=== PATIENT | female | born 1970 | race Two or more races ===

== ENCOUNTER 2025-02-17 19:17 | Inpatient (IN) | payer MEDICAID, OTHER ==
[~2025-02-17] VITALS: Ht 162.6 cm; Wt 81.9 kg
--- NOTE | 2025-02-17 19:38 | ED.PDOC ---
HPI Comments 54-year-old female complains of sudden onset palpitations and sensation of a rapid heart rate tonight that it started about 2 hours ago. Patient was brought in by EMS. EMS noted that the patient was in SVT and they gave 12 of adenosine and the patient converted to a normal sinus rhythm. Patient now states that she feels better. Chief Complaint: Palpitations Time Seen by MD: 19:28 Reviewed Notes: Nurses Notes, Solutions Consultant Notes Allergies: Coded Allergies: NO KNOWN ALLERGIES (Unverified , 02/17/25) Information Source: Patient, Emergency Med Personnel Mode of Arrival: EMS Severity: Severe Timing: Hours Duration: Hours Associated Signs and Symptoms: Palpitations Past Medical History PAST MEDICAL HISTORY: Denies Social History Smoker: Non-Smoker Alcohol: Denies ETOH Use Drugs: Denies Drug Use Cardiovascular: reports: palpitations, others (Chest tightness) All Other Systems: Reviewed and Negative Physical Exam General Appearance: No Apparent Distress, Normal HEENT: Normal ENT Inspection, Pharynx Normal, TMs Normal Neck: Full Range of Motion, Non-Tender, Normal, Normal Inspection Respiratory: Chest Non-Tender, Lungs Clear, No Accessory Muscle Use, No Respiratory Distress, Normal Breath Sounds Cardiovascular: No Edema, No JVD, No Murmur, No Gallop, Normal Peripheral Pulses, Regular Rate/Rhythm Breast Exam: Deferred Gastrointestinal: No Organomegaly, Non Tender, No Pulsatile Mass, Normal Bowel Sounds, Soft Genitalia: Deferred Pelvic: Deferred Rectal: Deferred Extremities: No calf tenderness, Normal capillary refill, Normal inspection, Normal range of motion, Non-tender, No pedal edema Musculoskeletal : Apperance: Normal Neurologic: Alert, 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 Was a procedure done?: No CP Differential Dx Differential Diagnosis: A-fib, A-Flutter, Angina, Heart Failure, Hyperthyroidism, MAT, ME, V-Fib, V-Tach, Other X-Ray, Labs, Meds, VS Vital Signs Date Time Temp Pulse Resp B/P (MAP) Pulse Ox O2 Delivery O2 Flow Rate FiO2 02/18/25 00:00 68 02/17/25 23:00 76 16 119/76 (90) 98 02/17/25 22:22 79 02/17/25 21:37 98.0 79 18 102/69 (80) 99 98.0 02/17/25 21:36 85 19 102/69 (80) 99 02/17/25 21:00 90 22 110/73 (85) 99 02/17/25 20:27 96 02/17/25 20:00 98 02/17/25 19:43 102 20 98 Room Air* 0 21 02/17/25 19:42 97.9 102 20 120/77 (91) 98 97.9 02/17/25 19:29 100.0 100 20 121/74 100 100.0 02/17/25 19:17 101 Lab Test 02/18/25 00:23 02/17/25 22:27 02/17/25 20:28 02/17/25 19:34 Range/Units Troponin I High Sensitivity 369 *H 272 *H 70 *H 32 </=34 ng/L White Blood Count 5.1 4.4-10.8 10^3/uL Red Blood Count 4.64 4.0-5.20 10^6/uL Hemoglobin 13.6 12.2-16.2 g/dL Hematocrit 39.2 36.0-46.0 % Mean Corpuscular Volume 84.5 80.0-100.0 fL Mean Corpuscular Hemoglobin 29.3 28.0-32.0 pg Mean Corpuscular Hemoglobin Concent 34.7 32.0-36.0 g/dL Red Cell Distribution Width 12.7 11.8-14.3 % Platelet Count 223 140-450 10^3/uL Mean Platelet Volume 6.7 L 6.9-10.8 fL Neutrophils (%) (Auto) 56.9 37.0-80.0 % Lymphocytes (%) (Auto) 34.4 10.0-50.0 % Monocytes (%) (Auto) 4.9 0.0-12.0 % Eosinophils (%) (Auto) 3.5 0.0-7.0 % Basophils (%) (Auto) 0.3 0.0-2.0 % Neutrophils # (Auto) 2.9 1.6-8.6 10 ^3/uL Lymphocytes # (Auto) 1.7 0.4-5.4 10 ^3/uL Monocytes # (Auto) 0.2 0-1.3 10 ^3/uL Eosinophils # (Auto) 0.2 0-0.8 10 ^3/uL Basophils # (Auto) 0 0-0.2 10 ^3/uL Nucleated Red Blood Cells 0.0 % Sodium Level 145 136-145 mmol/L Potassium Level 3.4 L 3.5-5.1 mmol/L Chloride Level 110 H 98-107 mmol/L Carbon Dioxide Level 23 20-31 mmol/L Anion Gap 12 5-15 Blood Urea Nitrogen 14 9-23 mg/dL Creatinine 0.95 0.550-1.02 mg/dL Glomerular Filtration Rate Calc 71 >90 mL/min BUN/Creatinine Ratio 14.7 10.0-20.0 Serum Glucose 129 H 74-106 mg/dL Calcium Level 9.6 8.7-10.4 mg/dL Total Bilirubin 0.4 0.2-1.0 mg/dL Aspartate Amino Transferase (AST) 42 H 13-40 U/L Alanine Aminotransferase (ALT) 56 H 7-40 U/L Alkaline Phosphatase 67 46-116 U/L Total Protein 7.5 5.7-8.2 g/dL Albumin 4.3 3.2-4.8 g/dL Current Medications Medications (Trade) Dose Ordered Sig/Darrell Route Start Time Stop Time Status Last Admin Sodium Chloride 1,000 ml @ 1,000 mls/hr Q1H ONCE IV 02/17/25 23:15 02/18/25 00:14 DC 02/17/25 23:26 Aspirin 81 mg ONCE ONCE PO 02/17/25 23:30 02/17/25 23:31 DC 02/17/25 23:56 Time of 1ST Reevaluation: 19:37 Reevaluation 1ST: Improved Patient Education/Counseling: Diagnosis, Treatment Family Education/Counseling: No Family Present SEPSIS Sepsis Screen Physician Orders Electrocardigram (02/17/25 22:28) Lease Examiner (02/17/25 ) Vital Signs Date Time Temp Pulse Resp B/P (MAP) Pulse Ox O2 Delivery O2 Flow Rate FiO2 02/18/25 00:00 68 02/17/25 23:00 76 16 119/76 (90) 98 02/17/25 22:22 79 02/17/25 21:37 98.0 79 18 102/69 (80) 99 98.0 02/17/25 21:36 85 19 102/69 (80) 99 02/17/25 21:00 90 22 110/73 (85) 99 02/17/25 20:27 96 02/17/25 20:00 98 02/17/25 19:43 102 20 98 Room Air* 0 21 02/17/25 19:42 97.9 102 20 120/77 (91) 98 97.9 02/17/25 19:29 100.0 100 20 121/74 100 100.0 02/17/25 19:17 101 Laboratory Tests Test 02/17/25 19:34 White Blood Count 5.1 10^3/uL (4.4-10.8) Medications Medications Dose Ordered Sig/Darrell Route Start Time Stop Time Status Last Admin Dose Admin Aspirin 81 mg ONCE ONCE PO 02/17/25 23:30 02/17/25 23:31 DC 02/17/25 23:56 Sodium Chloride 1,000 ml @ 1,000 mls/hr Q1H ONCE IV 02/17/25 23:15 02/18/25 00:14 DC 02/17/25 23:26 Departure 1 Departure Time of Disposition: 02:18 Impression: Primary Impression: Supraventricular tachycardia Additional Impression: Acute coronary syndrome Disposition: 01 HOME / SELF CARE / HOMELESS Condition: Stable Discharged With: Self Comments Patient with the SVT episode that converted to sinus rhythm after 1 adenosine. However her troponin is steadily rising. Patient was given aspirin. Patient will need to be admitted for supportive care and further cardiac workup. Critical Care Note Critical Care Time?: Yes (35 min-critical care time only) Critical care comment: Total critical care time: Approximately 36 minutes Due to a high probability of clinically significant, life threatening dete rioration, the patient required my highest level of preparedness to intervene emergently and I personally spent this critical care time directly and personally managing the patient. This critical care time included obtaining a history; examining the patient; pulse oximetry; ordering and review of studies; arranging urgent treatment with development of a management plan; evaluation of patient's response to treatment; frequent reassessment; and, discussions with other providers. This critical care time was performed to assess and manage the high probability of imminent, life-threatening deterioration that could result in multi-organ f ailure. It was exclusive of separately billable procedures and treating other patients. Stability Stability form required: No Heart Score Heart Score: Heart Score Response (Comments) Value History Slightly Suspicious 0 EKG Normal 0 Age 45-64 1 Risk Factors 1 or 2 risk factors 1 Troponin 1-2 x's Normal limit 1 Total 3 LAURA SPENCER MD Feb 17, 2025 19:37
[2025-02-17 19:43] VITALS: PULSE 102; RESP 20; O2SAT 98
[2025-02-17 19:49] LABS: Hematocrit 39.2 % (36.0-46.0); Hemoglobin 13.6 g/dL (12.2-16.2); Mean Corpuscular Hemoglobin 29.3 pg (28.0-32.0); Mean Corpuscular Volume 84.5 fL (80.0-100.0); Nucleated Red Blood Cells % 0.0 %
[2025-02-17 20:08] LABS: Alkaline Phosphatase 67 U/L (46-116); Calcium 9.6 mg/dL (8.7-10.4); Carbon Dioxide 23 mmol/L (20-31)
[2025-02-17 20:09] LABS: Albumin 4.3 g/dL (3.2-4.8); Anion Gap 12 (5-15); BUN/Creatinine Ratio 14.7 (10.0-20.0); Bilirubin, Total 0.4 mg/dL (0.2-1.0); Blood Urea Nitrogen 14 mg/dL (9-23); Total Protein 7.5 g/dL (5.7-8.2)
[2025-02-17 20:42] LABS: Alanine Aminotransferase 56 U/L (7-40); Chloride 110 mmol/L (98-107); Glucose 129 mg/dL (74-106); Potassium 3.4 mmol/L (3.5-5.1); Sodium 145 mmol/L (136-145)
--- NOTE | 2025-02-17 23:12 | ECG ---
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
--- NOTE | 2025-02-17 23:13 | ECG ---
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
[2025-02-17] MEDS: SODIUM CHLORIDE 0.9% 1,000 ML IV ONE (23:26)
[2025-02-18] VITALS (8 sets, daily range): BP systolic 108–127; BP diastolic 63–80; PULSE 61–77; RESP 14–19; TEMP 97.1–98.1; O2SAT 96–97
[2025-02-18] MEDS: POTASSIUM CHL 20 Meq TABLET PO ONE (03:00)
[2025-02-18] MEDS ORDERED: ONDANSETRON HCL 4 MG/2 ML VIAL IV PRN (03:00)
--- NOTE | 2025-02-18 03:25 | DVHHPRES ---
History of Present Illness Resident Creating Document: DEANNA ALBA RESIDENT History of Present Illness 54-year-old female with no significant PMH has come to the emergency via EMS due to palpitations. Patient reports that she has been having sensation of her heart beating faster than normal on and off for the past month but today evening (02/17/2025), while she was working she had a similar episode, but this time it was continuous. She waited for an hour and when the palpitations did not go away she decided to call EMS. She reports that it was associated with shortness of breaths and slight dizziness but denies any nausea, vomiting, fever, chills, chest pain. In the EMS she had an episode of SVT and 12 of adenosine was administered, after which patient converted to normal sinus rhythm. Patient has no complaints now and reports feeling better. On admission vitals were stable HR 79, BP 115/67 mmHg, RR 14, SpO2 94% on room air. Potassium is slightly low at 3 .4 and tropes are up trending 70>272> 369. We are admitting the patient for further workup and management Past medical history: None Surgical history: x1, hysterectomy for urinary cancer Family history: None Social history: Patient lives with family, denies ever smoking, drinking alcohol or taking any illicit drugs PCP: Cannot remember the name (is in [place], [place]) Allergies: None Code status: Full code Review of Systems Constitutional: Yes: Other (Dizziness); No: Fever, Chills, Sweats, Weakness, Malaise Eyes: No: Pain, Vision change, Conjunctivae inflammation, Eyelid inflammation, Other, Redness ENT: No: Ear pain, Ear discharge, Nose pain, Nose discharge, Nose congestion, Mouth pain, Mouth swelling, Throat pain, Throat swelling, Other Respiratory: Shortness of breath; No: Cough, Dry, SOB with excertion, Wheezing, Hemoptysis, Pleuritic Pain, Sputum, Wheezing, Other Cardiovascular: Palpitations; No: Chest Pain, Orthopnea, Paroxysmal Noc. Dyspnea, Edema, Lt Headedness, Other Gastrointestinal: No: Nausea, Vomiting, Abdominal Pain, Diarrhea, Constipation, Melena, Hematochezia, Other Genitourinary: No Dysuria, No Frequency, No Incontinence, No Hematuria, No Retention, No Other Musculoskeletal: No: other, neck pain, shoulder pain, arm pain, back pain, hand pain, leg pain, foot pain Skin: No: Rash, Lesions, Jaundice, Bruising, Other Neurological: No: Weakness, Numbness, Incoordination, Change in speech, Confusion, Seizures, Other Allergies: Coded Allergies: NO KNOWN ALLERGIES (Unverified , 02/17/25) Medications Current Medications Medications Dose Ordered Sig/Darrell Route Start Time Stop Time Status Last Admin Dose Admin Ondansetron HCl 4 mg Q4HP PRN IV 02/18/25 03:00 Enoxaparin Sodium 40 mg Q24H SC 02/18/25 04:00 Aspirin 81 mg DAILY PO 02/18/25 10:00 Metoprolol Tartrate 12.5 mg BID PO 02/18/25 10:00 Exam Vital Signs Vital Signs Date Time Temp Pulse Resp B/P (MAP) Pulse Ox O2 Delivery O2 Flow Rate FiO2 02/18/25 02:00 68 14 115/67 (83) 94 02/17/25 21:37 98.0 98.0 02/17/25 19:43 Room Air* 0 21 Exam Pt is lying on bed General Appearance: Alert, Oriented X3, Cooperative, Not in acute distress HEENT: Atraumatic, Mucous membranes moist/pink Respiratory: Clear to auscultation, Normal air movement, No added sounds Cardiovascular: Regular rate, Normal S1, Normal S2, No murmurs Abdominal: Active bowel sounds, Soft, no distention, no tenderness Extremities: No edema, Normal pulses, No tenderness/swelling Skin: No Significant rash, except past surgical scars Neuro: Normal speech, sensorimotor deficits none Psych/Mental Status: Mental status NL, Mood NL 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 Labs/Xrays Labs Test 02/18/25 00:23 02/17/25 19:34 Range/Units Troponin I High Sensitivity 369 *H </=34 ng/L White Blood Count 5.1 4.4-10.8 10^3/uL Red Blood Count 4.64 4.0-5.20 10^6/uL Hemoglobin 13.6 12.2-16.2 g/dL Hematocrit 39.2 36.0-46.0 % Mean Corpuscular Volume 84.5 80.0-100.0 fL Mean Corpuscular Hemoglobin 29.3 28.0-32.0 pg Mean Corpuscular Hemoglobin Concent 34.7 32.0-36.0 g/dL Red Cell Distribution Width 12.7 11.8-14.3 % Platelet Count 223 140-450 10^3/uL Mean Platelet Volume 6.7 L 6.9-10.8 fL Neutrophils (%) (Auto) 56.9 37.0-80.0 % Lymphocytes (%) (Auto) 34.4 10.0-50.0 % Monocytes (%) (Auto) 4.9 0.0-12.0 % Eosinophils (%) (Auto) 3.5 0.0-7.0 % Basophils (%) (Auto) 0.3 0.0-2.0 % Neutrophils # (Auto) 2.9 1.6-8.6 10 ^3/uL Lymphocytes # (Auto) 1.7 0.4-5.4 10 ^3/uL Monocytes # (Auto) 0.2 0-1.3 10 ^3/uL Eosinophils # (Auto) 0.2 0-0.8 10 ^3/uL Basophils # (Auto) 0 0-0.2 10 ^3/uL Nucleated Red Blood Cells 0.0 % Sodium Level 145 136-145 mmol/L Potassium Level 3.4 L 3.5-5.1 mmol/L Chloride Level 110 H 98-107 mmol/L Carbon Dioxide Level 23 20-31 mmol/L Anion Gap 12 5-15 Blood Urea Nitrogen 14 9-23 mg/dL Creatinine 0.95 0.550-1.02 mg/dL Glomerular Filtration Rate Calc 71 >90 mL/min BUN/Creatinine Ratio 14.7 10.0-20.0 Serum Glucose 129 H 74-106 mg/dL Calcium Level 9.6 8.7-10.4 mg/dL Total Bilirubin 0.4 0.2-1.0 mg/dL Aspartate Amino Transferase (AST) 42 H 13-40 U/L Alanine Aminotransferase (ALT) 56 H 7-40 U/L Alkaline Phosphatase 67 46-116 U/L Total Protein 7.5 5.7-8.2 g/dL Albumin 4.3 3.2-4.8 g/dL SEPSIS Sepsis Screen Date sepsis recognized/suspect: Feb 17, 2025 Time Sepsis recognized/suspect: 1942 Recent Procedure: No On Antibiotic Therapy: No Respiratory Rate >20: No Heart Rate >90: Yes Temp<36 C (96.8 F) or >38.3 C: No SBP <90 or MAP <65 mmHG: No New Acute Mental Status Change: No Is the patient on CPAP, BIPAP,: No Physician Orders Electrocardigram (02/17/25 22:28) Soapstoner (02/17/25 ) Admit (02/18/25 02:51) Code Status (02/18/25 02:51) Ondansetron Hcl (Zofran) (02/18/25 03:00) Complete Blood Count (02/18/25 04:00) Comprehensive Metabolic Panel (02/18/25 04:00) Cardiac Diet-2gna,Lofat,Lochol (02/18/25 Breakfast) Condition: Unstable (02/18/25 02:51) Enoxaparin Sodium (Lovenox) (02/18/25 04:00) Base Filler For 24 Hours (02/18/25 02:51) Emergency Dysrhythmia Protocol (02/18/25 02:51) Stat Ekg For Chest Pain (02/18/25 02:51) Notify Md Of Changes From Base (02/18/25 02:51) B-Type Natriuretic Peptide (02/18/25 02:51) Echo 2d Mode Cardiac Dop (02/18/25 02:51) Chest Xray 1 View (02/18/25 02:51) Urinalysis (02/18/25 02:51) Drug Screen (02/18/25 02:51) Thyroid Stimulating Hormone (02/18/25 02:51) Troponin-I Hs (02/18/25 02:51) Aspirin Tablet (02/18/25 10:00) Metoprolol Tartrate Tablet (Lopressor Ta (02/18/25 10:00) Magnesium (02/18/25 04:00) Vital Signs Date Time Temp Pulse Resp B/P (MAP) Pulse Ox O2 Delivery O2 Flow Rate FiO2 02/18/25 02:00 68 14 115/67 (83) 94 02/18/25 01:00 76 11 119/73 (88) 98 02/18/25 00:00 68 02/18/25 00:00 72 20 121/72 (88) 98 02/17/25 23:00 76 16 119/76 (90) 98 02/17/25 22:22 79 02/17/25 21:37 98.0 79 18 102/69 (80) 99 98.0 02/17/25 21:36 85 19 102/69 (80) 99 02/17/25 21:00 90 22 110/73 (85) 99 02/17/25 20:27 96 02/17/25 20:00 98 02/17/25 19:43 102 20 98 Room Air* 0 21 02/17/25 19:42 97.9 102 20 120/77 (91) 98 97.9 02/17/25 19:29 100.0 100 20 121/74 100 100.0 Laboratory Tests Test 02/17/25 19:34 White Blood Count 5.1 10^3/uL (4.4-10.8) Medications Medications Dose Ordered Sig/Darrell Route Start Time Stop Time Status Last Admin Dose Admin Aspirin 81 mg ONCE ONCE PO 02/17/25 23:30 02/17/25 23:31 DC 02/17/25 23:56 81 MG Sodium Chloride 1,000 ml @ 1,000 mls/hr Q1H ONCE IV 02/17/25 23:15 02/18/25 00:14 DC 02/17/25 23:26 1,000 MLS/HR Assessment/Plan Assessment/Plan #Supraventricular tachycardia - EKG: normal sinus rhythm now - telemonitor - Tropes 70, 272, 369, 285 - aspirin 81 mg daily - IV Zofran 4 mg q.4 PRN - metoprolol tartrate 12.5 mg p.o. bid daily - BNP 75.15 - echo - TSH 1.48 - UA - UDS - chest x-ray normal #Hypokalemia -Repleted -Magnesium #Transaminitis -Monitor DVT prophylaxis: Lovenox 40 mg SC daily Diet: cardiac diet Goals of care discussed with the patient for more than 27 minutes: Full code status Case discussed with Dr. Espana, patient Plan discussed with: Patient My Orders Orders - DEANNA ALBA RESIDENT Procedure Category Date Status Time Admit ADMIT 02/18/25 Transmitted 02:51 Code Status CODE 02/18/25 Transmitted 02:51 Ondansetron Hcl PHA 02/18/25 In Process (Zofran) 03:00 Complete Blood Count LAB 02/18/25 Logged 04:00 Comprehensive LAB 02/18/25 Logged Metabolic Panel 04:00 Cardiac DIET 02/18/25 Transmitted Diet-2gna,Lofat,Lochol Breakfast Condition: Unstable [facility] 02/18/25 In Process 02:51 Enoxaparin Sodium [facility] 02/18/25 In Process (Lovenox) 04:00 Base Filler For [facility] 02/18/25 In Process 24 Hours 02:51 Emergency Dysrhythmia [facility] 02/18/25 In Process Protocol 02:51 Stat Ekg For Chest [facility] 02/18/25 In Process Pain 02:51 Notify Of Changes [facility] 02/18/25 In Process From Base 02:51 B-Type Natriuretic LAB 02/18/25 Logged Peptide 02:51 Echo 2d Mode Cardiac US 02/18/25 Logged DOP 02:51 Chest Xray 1 View XY 02/18/25 Logged 02:51 Urinalysis LAB 02/18/25 Logged 02:51 Drug Screen LAB 02/18/25 Logged 02:51 Thyroid Stimulating LAB 02/18/25 Logged Hormone 02:51 Troponin-I Hs LAB 02/18/25 Logged 02:51 Aspirin Tablet [facility] 02/18/25 In Process 10:00 Metoprolol Tartrate [facility] 02/18/25 In Process Tablet (Lopressor Ta 10:00 Magnesium LAB 02/18/25 Logged 04:00 Date of Service: Feb 18, 2025 Billing Provider: SHARON ESPANA MD Common Visit Codes: 12904-IEYJRRH INP/OBS CARE (HIGH) Secondary Visit Codes: 28535-[id number] CARE PLAN 30 MINUTES DEANNA ALBA RESIDENT Feb 18, 2025 03:25
[2025-02-18 03:41] LABS: Hematocrit 36.7 % (36.0-46.0); Hemoglobin 12.4 g/dL (12.2-16.2); Mean Corpuscular Hemoglobin 28.7 pg (28.0-32.0); Mean Corpuscular Volume 85.0 fL (80.0-100.0); Nucleated Red Blood Cells % 0.1 %
[2025-02-18 04:00] LABS: Albumin 3.7 g/dL (3.2-4.8); Alkaline Phosphatase 58 U/L (46-116); Anion Gap 9 (5-15); BUN/Creatinine Ratio 18.1 (10.0-20.0); Blood Urea Nitrogen 13 mg/dL (9-23); Carbon Dioxide 24 mmol/L (20-31); Glucose 93 mg/dL (74-106); Magnesium 1.9 mg/dL (1.6-2.6); Potassium 3.9 mmol/L (3.5-5.1); Sodium 145 mmol/L (136-145); Total Protein 6.7 g/dL (5.7-8.2)
[2025-02-18 04:01] LABS: Bilirubin, Total 0.4 mg/dL (0.2-1.0)
[2025-02-18 04:02] LABS: Alanine Aminotransferase 46 U/L (7-40); Calcium 8.6 mg/dL (8.7-10.4); Chloride 112 mmol/L (98-107)
[2025-02-18] MEDS: ENOXAPARIN SOD 40 MG/0.4 ML SYRINGE SC SCH (04:02)
--- NOTE | 2025-02-18 04:19 | DVH ---
CHEST RADIOGRAPH Indication: sob Technique: Single frontal view of the chest was obtained COMPARISON: None FINDINGS: Lines and Tubes: None Lungs: Clear Pleura: No effusion. No pneumothorax. Cardiomediastinal contours: Unremarkable Bones: Unremarkable IMPRESSION: 1. No acute disease.
--- NOTE | 2025-02-18 07:53 | ECG ---
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
[2025-02-18] MEDS: METOPROLOL TARTRATE 25 MG TAB PO SCH (09:06)
--- NOTE | 2025-02-18 13:18 | DVHCONRES ---
Date Seen: Feb 18, 2025 Resident Creating Document: ABIMAEL PHILIPPE RESIDENT Referring Physician Dr Schmitt Reason for Consultation Palpitations and dizziness History of Present Illness This is a 54-year-old female with a past medical history significant for cervical cancer status post hysterectomy and radiotherapy, and a prior episode of supraventricular tachycardia (SVT), who presented after experiencing palpitations and dizziness while at work around 5:30 PM. Per EMS report, her heart rate was above 210 bpm. She received adenosine 6 mg IV without response, followed by 12 mg IV with successful conversion to normal sinus rhythm. The patient reported a similar episode approximately four years ago in [place], where she underwent evaluation with an event monitor and cardiology follow-up, but was not started on chronic medications. She also recalls a similar episode occurring a month ago At presentation, her heart rate was 67 bpm, and she was in normal sinus rhythm on telemetry. She denied chest pain, syncope, or dyspnea at rest. Past Medical History: Cervical cancer, s/p hysterectomy and radiotherapy Prior episode of SVT Medications: None prior to admission Allergies: No known drug allergies Social History: Lives independently Denies tobacco, alcohol, or illicit drug use Labs: Magnesium: 1.9 mg/dL (low) TSH: within normal limits BMP/CBC: within normal limits Imaging / Diagnostics: ECG: Sinus rhythm Echocardiogram: Pending (previous studies reportedly unremarkable per patient ) Family History: FH: headache G8 MOTHER Allergies: Coded Allergies: NO KNOWN ALLERGIES (Unverified , 02/17/25) Current Medications Current Medications Medications (Trade) Dose Ordered Sig/Darrell Route PRN Reason Start Time Stop Time Status Last Admin Ondansetron HCl (Zofran) 4 mg Q4HP PRN IV NAUSEA / VOMITING 02/18/25 03:00 Enoxaparin Sodium (Lovenox) 40 mg Q24H SC 02/18/25 04:00 02/18/25 04:02 Aspirin 81 mg DAILY PO 02/18/25 10:00 02/18/25 09:04 Metoprolol Tartrate (Lopressor Tablet) 12.5 mg BID PO 02/18/25 10:00 02/18/25 12:52 DC 02/18/25 09:06 Atorvastatin Calcium (Lipitor) 40 mg HS PO 02/18/25 22:00 Metoprolol Succinate (Toprol Xl) 25 mg DAILY PO 02/19/25 10:00 UNV Review of Systems Positive for dizziness and palpitations. Negative for chest pain, shortness of breath, fever, cough, abdominal pain, or urinary symptoms. Vital Signs Vital Signs Date Time Temp Pulse Resp B/P (MAP) Pulse Ox O2 Delivery O2 Flow Rate FiO2 02/18/25 10:06 67 121/52 02/18/25 09:00 97.4 16 97 97.4 02/18/25 08:00 Room Air* 0 21 Physical Exam General: Alert, oriented, in no acute distress. Cardiac: Regular rate and rhythm, no murmurs, rubs, or gallops. Respiratory: Clear to auscultation bilaterally. Abdomen: Soft, non-tender, non-distended. Extremities: No edema or cyanosis. Neuro: Alert and oriented x3, no focal deficits. Labs/Diagnostic Data Labs Test 02/18/25 11:48 02/18/25 03:25 Range/Units Magnesium Level 2.0 1.6-2.6 mg/dL White Blood Count 5.1 4.4-10.8 10^3/uL Red Blood Count 4.31 4.0-5.20 10^6/uL Hemoglobin 12.4 12.2-16.2 g/dL Hematocrit 36.7 36.0-46.0 % Mean Corpuscular Volume 85.0 80.0-100.0 fL Mean Corpuscular Hemoglobin 28.7 28.0-32.0 pg Mean Corpuscular Hemoglobin Concent 33.7 32.0-36.0 g/dL Red Cell Distribution Width 12.8 11.8-14.3 % Platelet Count 203 140-450 10^3/uL Mean Platelet Volume 6.8 L 6.9-10.8 fL Neutrophils (%) (Auto) 40.8 37.0-80.0 % Lymphocytes (%) (Auto) 47.2 10.0-50.0 % Monocytes (%) (Auto) 6.6 0.0-12.0 % Eosinophils (%) (Auto) 4.8 0.0-7.0 % Basophils (%) (Auto) 0.6 0.0-2.0 % Neutrophils # (Auto) 2.1 1.6-8.6 10 ^3/uL Lymphocytes # (Auto) 2.4 0.4-5.4 10 ^3/uL Monocytes # (Auto) 0.3 0-1.3 10 ^3/uL Eosinophils # (Auto) 0.2 0-0.8 10 ^3/uL Basophils # (Auto) 0 0-0.2 10 ^3/uL Nucleated Red Blood Cells 0.1 % Sodium Level 145 136-145 mmol/L Potassium Level 3.9 3.5-5.1 mmol/L Chloride Level 112 H 98-107 mmol/L Carbon Dioxide Level 24 20-31 mmol/L Anion Gap 9 5-15 Blood Urea Nitrogen 13 9-23 mg/dL Creatinine 0.72 0.550-1.02 mg/dL Glomerular Filtration Rate Calc 99 >90 mL/min BUN/Creatinine Ratio 18.1 10.0-20.0 Serum Glucose 93 74-106 mg/dL Calcium Level 8.6 L 8.7-10.4 mg/dL Total Bilirubin 0.4 0.2-1.0 mg/dL Aspartate Amino Transferase (AST) 31 13-40 U/L Alanine Aminotransferase (ALT) 46 H 7-40 U/L Alkaline Phosphatase 58 46-116 U/L Troponin I High Sensitivity 285 *H </=34 ng/L B-Type Natriuretic Peptide 75.17 0-100 pg/mL Total Protein 6.7 5.7-8.2 g/dL Albumin 3.7 3.2-4.8 g/dL Thyroid Stimulating Hormone (TSH) 1.48 0.55-4.78 uIU/mL Assessment Assessment: #SVT resolved #H/o SVT #H/o cervical cancer #Hypokalemia resolved #Mild hypomagnesemia 54-year-old female with a history of cervical cancer and prior SVT, presenting with recurrent supraventricular tachycardia responsive to adenosine. Currently in stable sinus rhythm. Mild hypomagnesemia noted. Plan: Continue telemetry Replace magnesium: 1 g IV x1 Initiate metoprolol succinate 25 mg daily (transition from tartrate 12.5 mg BID) Monitor electrolytes and replete as needed Obtain echocardiogram: in the case of unremarkable report, no need of further work up as outpatient Outpatient follow-up with electrophysiology (Dr. Zamora) for evaluation and possible ablation Patient advised on monitoring with [employer] and to seek medical attention for recurrent symptoms We will sign off of this case, please call us for any questions Case discussed with Dr Vaz Time spent on care 71 min Plan discussed with: Patient ABMIAEL PHILIPPE RESIDENT Feb 18, 2025 13:18
[2025-02-18] MEDS: MAGNESIUM SULFATE 1GM/100ML 100 ML IV ONE (14:54)
--- NOTE | 2025-02-18 19:47 | DVHPNRES ---
Progress Note Date Seen: Feb 18, 2025 Resident Creating Document: SHELBIE GU RESIDENT Medical Necessity Reason Pt with a Central, PICC or Fol: No Subjective Review of Systems Brief history on arrival: This is a 54-year-old female without significant past medical history, was brought in by EMS due to palpitations and shortness of breath at rest. Patient reports that she was at her work place ([employer]) where she felt the sensation of her heart beating faster. The palpitations were followed by feeling of numbness of face and left arm, followed by lightheadedness and patient had to take support from wall to prevent fall. She denies loss of consciousness or hitting her head. Patient continued to complain of palpitation and difficulty in breathing, which persisted for more than an hour, urging her to call 911. The EMS reported SVT on EKG and she was administered 2 doses of adenosine, after which patient converted to normal sinus rhythm. She denies chest pain, olfactory hallucinations, fever, chills, motor symptoms, sick contacts. Patient reported similar episode 1 month back which was transient, she did not seek any care at that time. Four years ago she reports having episodes of dizziness and palpitations, she underwent stress testing, echocardiogram and cardiac monitoring, and was eventually diagnosed with panic attack and vertigo. On admission vitals were stable HR 79, BP 115/67 mmHg, RR 14, SpO2 94% on room air. Potassium is slightly low at 3.4 and tropes are up trending 70>272> 369. Past medical history: Uterine, ovarian cancer, panic attack and vertigo Surgical history: x1, hysterectomy for urinary cancer Family history: None Social history: Patient lives with family, denies ever smoking, drinking alcohol or taking any illicit drugs PCP: Dr. Harrington Home medications: Tylenol for headache Allergies: None Code status: Full code ROS: Constitutional: Denies weight loss, fever and chills. HEENT: Denies changes in vision and hearing. Respiratory: Denies shortness of breath and cough Cardiovascular: Palpitations, shortness of breaths GI: Denies abdominal pain, nausea, vomiting and diarrhea. : Denies dysuria and urinary frequency. Musculoskeletal: Denies myalgias and joint pain Skin: Denies rash and pruritus. 02/18/2025: Patient was seen at bedside today. She has no new complaints, reports feeling better. Objective vital signs Vital Sign Date Time Temp Pulse Resp B/P (MAP) Pulse Ox O2 Delivery O2 Flow Rate FiO2 02/18/25 17:00 97.6 74 18 112/74 (87) 96 97.6 02/18/25 08:00 Room Air* 0 21 Total Intake and Output 02/17/25 02/17/25 02/18/25 15:00 23:00 07:00 Intake Total 1000 ml Balance 1000 ml medications Current Medications Medications Dose Ordered Sig/Darrell Route Start Time Stop Time Status Last Admin Dose Admin Ondansetron HCl 4 mg Q4HP PRN IV 02/18/25 03:00 Enoxaparin Sodium 40 mg Q24H SC 02/18/25 04:00 02/18/25 04:02 40 MG Aspirin 81 mg DAILY PO 02/18/25 10:00 02/18/25 09:04 81 MG Atorvastatin Calcium 40 mg HS PO 02/18/25 22:00 Metoprolol Succinate 25 mg DAILY PO 02/19/25 10:00 Examination General: Patient alert and oriented in person, place and time. Patient following commands. HEENT: Normocephalic, atraumatic, moist mucous membranes Respiratory/pulmonary: Clear lungs bilaterally, vesicular murmurs present in almost all lung pinto, no associated crackles or wheezes. Cardiovascular: Normal heart sounds S1 and S2 with no associated murmurs Abdomen: Abdomen nondistended, there is no pain to palpation in any of the abdominal quadrants, no palpable masses. Extremities: There is no peripheral edema present at the lower extremities. Peripheral Pulses: 3+ Radial (R). 3+ Radial (L). 3+ Dorsalis pedis (R). 3+ Dorsalis pedis(L) Skin: No rashes or pruritus, there is no sacral edema present at this time. Neurological: Intact cranial nerves with no focal neurologic deficits laboratory and microbiology Laboratory Tests 02/18/25 03:25 Test 02/18/25 03:25 Range/Units Serum Glucose 93 74-106 mg/dL Problem List/Assessment/Plan Problem List/Assessment/Plan Type 2 NSTEMI, likely due to SVT Recurrent SVT, [id number] successful chemical cardioversion with adenosine x2 Ruled out hypothyroidism TSH WNL Echocardiogram pending Troponins trending down EKG shows no pre-excitation, now sinus rhythm Follow outpatient with Cardiology/EP for longitudinal follow-up/ ablation; we will be discharged to home with low-dose metoprolol succinate Continue metoprolol succinate 25 mg p.o. daily Started on atorvastatin 40 mg, aspirin 81 p.o. daily Telemetry monitoring Hypokalemia, resolved Continue monitoring BMP Transaminitis Mildly elevated ALT Continue monitoring History of uterine, ovarian cancer, status post hysterectomy, oophorectomy DIET: Cardiac DVT PROPHYLAXIS: Lovenox GI PROPHYLAXIS: Protonix CODE STATUS: Goals of care discussed with patient at bedside for more than 18 minutes. Full code DISPOSITION: Telemetry This medical document was created using an electronic medical record system with [employer] computerized dictation system. Although this document has been carefully reviewed, there may still be some phonetic and typographical errors. These areas are purely typographical due to imperfections of the software programs, and do not reflect any compromise in the patient's medical care. Patient's status and plan discussed with the patient. Case discussed with Dr. Barba Plan discussed with: Patient, Other (Nurses) Date of Service: Feb 18, 2025 Billing Provider: SULY BARBA MD Common Visit Codes: [id number] INP/OBS CARE(HIGH) SHELBIE GU RESIDENT Feb 18, 2025 19:47 SULY BARBA MD Feb 21, 2025 16:46
[2025-02-18] MEDS: PANTOPRAZOLE 40 MG TAB PO ONE (21:14)
[2025-02-18] MEDS: ATORVASTATIN 20 MG TAB PO SCH (21:14)
[2025-02-18 22:15] LABS: Urine Protein, UAD Negative (Negative)
[2025-02-18 22:18] LABS: Amphetamine Screen, Urine Neg (NEGATIVE); Barbiturate Scree,Urine Neg (NEGATIVE); Benzodiazephine Screen, Urine Neg (NEGATIVE); Cannabinoid Screen, Urine Neg (NEGATIVE); Cocaine Screen, Urine Neg (NEGATIVE); Opiate Scree,Urine Neg (NEGATIVE); Phencyclidine Screen, Urine Neg (NEGATIVE)
[2025-02-19] MEDS ORDERED: ACETAMINOPHEN 325 MG TAB PO PRN (00:30)
[2025-02-19] MEDS: ACETAMINOPHEN 325 MG TAB PO ONE (00:51)
[2025-02-19 01:00] VITALS: BP 111/73; PULSE 71; RESP 19; TEMP 98.4; O2SAT 98
[2025-02-19 05:00] VITALS: BP 106/70; PULSE 75; RESP 19; TEMP 97.9; O2SAT 96
[2025-02-19] MEDS: PANTOPRAZOLE 40 MG TAB PO SCH (05:38)
[2025-02-19 06:27] LABS: Hematocrit 38.4 % (36.0-46.0); Hemoglobin 13.5 g/dL (12.2-16.2); Mean Corpuscular Hemoglobin 29.8 pg (28.0-32.0); Mean Corpuscular Volume 84.8 fL (80.0-100.0); Nucleated Red Blood Cells % 0.0 %
[2025-02-19 06:35] LABS: Anion Gap 11 (5-15); Carbon Dioxide 24 mmol/L (20-31); Potassium 3.9 mmol/L (3.5-5.1); Sodium 142 mmol/L (136-145)
[2025-02-19 06:36] LABS: Calcium 9.1 mg/dL (8.7-10.4)
[2025-02-19 06:41] LABS: BUN/Creatinine Ratio 11.9 (10.0-20.0); Blood Urea Nitrogen 10 mg/dL (9-23)
[2025-02-19 06:51] LABS: Chloride 107 mmol/L (98-107); Glucose 109 mg/dL (74-106)
[2025-02-19 08:00] VITALS: PULSE 59; PULSE 64; RESP 15; O2SAT 95
[2025-02-19 08:56] VITALS: BP 118/82; PULSE 59; RESP 15; TEMP 98.1; O2SAT 95
[2025-02-19] MEDS: METOPROLOL SUCCINATE XL 50 MG TAB PO SCH (09:14)
[2025-02-19] MEDS ORDERED: METO25TA36 PO (10:29)
[2025-02-19] MEDS ORDERED: ATOR20TA50 PO (10:29)
[2025-02-19] MEDS ORDERED: ASPI-325 PO (10:29)
--- NOTE | 2025-02-19 10:40 | DVHPNRES ---
Progress Note Date Seen: Feb 19, 2025 Resident Creating Document: SHELBIE GU RESIDENT Medical Necessity Reason Pt with a Central, PICC or Fol: No Subjective Review of Systems Brief history on arrival: This is a 54-year-old female without significant past medical history, was brought in by EMS due to palpitations and shortness of breath at rest. Patient reports that she was at her work place ([employer]) where she felt the sensation of her heart beating faster. The palpitations were followed by feeling of numbness of face and left arm, followed by lightheadedness and patient had to take support from wall to prevent fall. She denies loss of consciousness or hitting her head. Patient continued to complain of palpitation and difficulty in breathing, which persisted for more than an hour, urging her to call 911. The EMS reported SVT on EKG and she was administered 2 doses of adenosine, after which patient converted to normal sinus rhythm. She denies chest pain, olfactory hallucinations, fever, chills, motor symptoms, sick contacts. Patient reported similar episode 1 month back which was transient, she did not seek any care at that time. Four years ago she reports having episodes of dizziness and palpitations, she underwent stress testing, echocardiogram and cardiac monitoring, and was eventually diagnosed with panic attack and vertigo. On admission vitals were stable HR 79, BP 115/67 mmHg, RR 14, SpO2 94% on room air. Potassium is slightly low at 3.4 and tropes are up trending 70>272> 369. Past medical history: Uterine, ovarian cancer, panic attack and vertigo Surgical history: x1, hysterectomy for urinary cancer Family history: None Social history: Patient lives with family, denies ever smoking, drinking alcohol or taking any illicit drugs PCP: Dr. Harrington Home medications: Tylenol for headache Allergies: None Code status: Full code 02/18/2025: She has no new complaints, reports feeling better. 02/19/25: Patient was seen at bedside today. No new complains reported. Continue telemetry monitoring, Echocardiogram pending. Objective vital signs Vital Sign Date Time Temp Pulse Resp B/P (MAP) Pulse Ox O2 Delivery O2 Flow Rate FiO2 02/19/25 09:14 59 118/82 02/19/25 08:56 98.1 15 95 98.1 02/19/25 08:00 Room Air* 0 21 Total Intake and Output 02/18/25 02/18/25 02/19/25 15:00 23:00 07:00 Intake Total 600 ml 700 ml Balance 600 ml 700 ml medications Current Medications Medications Dose Ordered Sig/Darrell Route Start Time Stop Time Status Last Admin Dose Admin Ondansetron HCl 4 mg Q4HP PRN IV 02/18/25 03:00 Enoxaparin Sodium 40 mg Q24H SC 02/18/25 04:00 02/19/25 04:10 40 MG Aspirin 81 mg DAILY PO 02/18/25 10:00 02/19/25 09:14 81 MG Atorvastatin Calcium 40 mg HS PO 02/18/25 22:00 02/18/25 21:14 40 MG Metoprolol Succinate 25 mg DAILY PO 02/19/25 10:00 02/19/25 09:14 25 MG Pantoprazole Sodium 40 mg DAILY@0600 PO 02/19/25 06:00 02/19/25 05:38 40 MG Acetaminophen 650 mg Q4HP PRN PO 02/19/25 00:30 Examination General: Patient alert and oriented in person, place and time. Patient following commands. HEENT: Normocephalic, atraumatic, moist mucous membranes Respiratory/pulmonary: Clear lungs bilaterally, vesicular murmurs present in almost all lung pinto, no associated crackles or wheezes. Cardiovascular: Normal heart sounds S1 and S2 with no associated murmurs Abdomen: Abdomen nondistended, there is no pain to palpation in any of the abdominal quadrants, no palpable masses. Extremities: There is no peripheral edema present at the lower extremities. Peripheral Pulses: 3+ Radial (R). 3+ Radial (L). 3+ Dorsalis pedis (R). 3+ Dorsalis pedis(L) Skin: No rashes or pruritus, there is no sacral edema present at this time. Neurological: Intact cranial nerves with no focal neurologic deficits laboratory and microbiology Laboratory Tests 02/19/25 05:50 Test 02/19/25 05:50 Range/Units Serum Glucose 109 H 74-106 mg/dL Problem List/Assessment/Plan Problem List/Assessment/Plan Type 2 NSTEMI, likely due to SVT Recurrent SVT, [id number] successful chemical cardioversion with adenosine x2 Ruled out hypothyroidism TSH WNL Echocardiogram pending Troponins trending down EKG shows no pre-excitation, now sinus rhythm Follow outpatient with Cardiology/EP for longitudinal follow-up/ ablation; we will be discharged to home with low-dose metoprolol succinate Continue metoprolol succinate 25 mg p.o. daily Continue on atorvastatin 40 mg, aspirin 81 p.o. daily Telemetry monitoring Hypokalemia, resolved Continue monitoring BMP Transaminitis Mildly elevated ALT Continue monitoring History of uterine, ovarian cancer, status post hysterectomy, oophorectomy DIET: Cardiac DVT PROPHYLAXIS: Lovenox GI PROPHYLAXIS: Protonix CODE STATUS: Goals of care discussed with patient at bedside for more than 18 minutes. Full code DISPOSITION: Telemetry This medical document was created using an electronic medical record system with [employer] computerized dictation system. Although this document has been carefully reviewed, there may still be some phonetic and typographical errors. These areas are purely typographical due to imperfections of the software programs, and do not reflect any compromise in the patient's medical care. Patient's status and plan discussed with the patient. Case discussed with Dr. Barba Plan discussed with: Patient, Other (nurses) My Orders My Orders Orders - SHELBIE GU RESIDENT Procedure Category Date Status Time Communication Order ORDERS 02/18/25 Transmitted 19:41 Pantoprazole Tablet PHA 02/19/25 In Process (Protonix Tablet) 06:00 Date of Service: Feb 19, 2025 Billing Provider: SULY BARBA MD Common Visit Codes: [id number] INP/OBS CARE(HIGH) SHELBIE GU RESIDENT Feb 19, 2025 10:40 SULY BARBA MD Feb 21, 2025 16:46
[2025-02-19 13:00] VITALS: BP 122/88; PULSE 73; RESP 16; TEMP 98.1; O2SAT 96
--- NOTE | 2025-02-20 12:51 | DVHDSRES ---
Discharge Summary Date of Admission Resident Creating Document: SHELBIE GU RESIDENT Feb 18, 2025 at 02:51 Date of Discharge: Feb 19, 2025 Labs/Diagnostic Data: Laboratory Results Test 02/19/25 05:50 02/18/25 21:12 02/18/25 11:48 02/18/25 03:25 White Blood Count 4.9 10^3/uL (4.4-10.8) Red Blood Count 4.53 10^6/uL (4.0-5.20) Hemoglobin 13.5 g/dL (12.2-16.2) Hematocrit 38.4 % (36.0-46.0) Mean Corpuscular Volume 84.8 fL (80.0-100.0) Mean Corpuscular Hemoglobin 29.8 pg (28.0-32.0) Mean Corpuscular Hemoglobin Concent 35.1 g/dL (32.0-36.0) Red Cell Distribution Width 12.7 % (11.8-14.3) Platelet Count 214 10^3/uL (140-450) Mean Platelet Volume 6.7 fL (6.9-10.8) Neutrophils (%) (Auto) 43.4 % (37.0-80.0) Lymphocytes (%) (Auto) 42.9 % (10.0-50.0) Monocytes (%) (Auto) 6.9 % (0.0-12.0) Eosinophils (%) (Auto) 6.4 % (0.0-7.0) Basophils (%) (Auto) 0.4 % (0.0-2.0) Neutrophils # (Auto) 2.1 10 ^3/uL (1.6-8.6) Lymphocytes # (Auto) 2.1 10 ^3/uL (0.4-5.4) Monocytes # (Auto) 0.3 10 ^3/uL (0-1.3) Eosinophils # (Auto) 0.3 10 ^3/uL (0-0.8) Basophils # (Auto) 0 10 ^3/uL (0-0.2) Nucleated Red Blood Cells 0.0 % Sodium Level 142 mmol/L (136-145) Potassium Level 3.9 mmol/L (3.5-5.1) Chloride Level 107 mmol/L (98-107) Carbon Dioxide Level 24 mmol/L (20-31) Anion Gap 11 (5-15) Blood Urea Nitrogen 10 mg/dL (9-23) Creatinine 0.84 mg/dL (0.550-1.02) Glomerular Filtration Rate Calc 83 mL/min (>90) BUN/Creatinine Ratio 11.9 (10.0-20.0) Serum Glucose 109 mg/dL (74-106) Calcium Level 9.1 mg/dL (8.7-10.4) Urine Color Light-yellow (Yellow) Urine Clarity Clear (Clear) Urine pH 6.5 (5.0-9.0) Urine Specific [place] 1.015 (1.001-1.035) Urine Protein Negative (Negative) Urine Ketones Negative (Negative) Urine Blood Negative /uL (Negative) Urine Nitrite Negative (Negative) Urine Bilirubin Negative (Negative) Urine Urobilinogen Normal mg/dL (Negative) Urine Leukocyte Esterase Negative /uL (Negative) Urine RBC 1 /hpf (0 - 4) Urine Microscopic WBC 2 /HPF (0-5) Urine Squamous Epithelial Cells Few /hpf (<5) Urine Bacteria None seen /hpf (None Seen) Urine Glucose Normal mg/dL (Normal) Urine Opiates Screen Neg (NEGATIVE) Urine Fentanyl Screen Neg (NEGATIVE) Urine Barbiturates Screen Neg (NEGATIVE) Urine Phencyclidine Screen Neg (NEGATIVE) Urine Amphetamines Screen Neg (NEGATIVE) Urine Benzodiazepines Screen Neg (NEGATIVE) Urine Cocaine Screen Neg (NEGATIVE) Urine Cannabinoids Screen Neg (NEGATIVE) Magnesium Level 2.0 mg/dL (1.6-2.6) Total Bilirubin 0.4 mg/dL (0.2-1.0) Aspartate Amino Transferase (AST) 31 U/L (13-40) Alanine Aminotransferase (ALT) 46 U/L (7-40) Alkaline Phosphatase 58 U/L (46-116) Troponin I High Sensitivity 285 ng/L (</=34) B-Type Natriuretic Peptide 75.17 pg/mL (0-100) Total Protein 6.7 g/dL (5.7-8.2) Albumin 3.7 g/dL (3.2-4.8) Thyroid Stimulating Hormone (TSH) 1.48 uIU/mL (0.55-4.78) Other Laboratory Tests 02/19/25 05:50 Brief Hx & Hospital Course: Brief history on arrival: This is a 54-year-old female without significant past medical history, was brought in by EMS due to palpitations and shortness of breath at rest. Patient reports that she was at her work place ([employer]) where she felt the sensation of her heart beating faster. The palpitations were followed by feeling of numbness of face and left arm, followed by lightheadedness and patient had to take support from wall to prevent fall. She denies loss of consciousness or hitting her head. Patient continued to complain of palpitation and difficulty in breathing, which persisted for more than an hour, urging her to call 911. The EMS reported SVT on EKG and she was administered 2 doses of adenosine, after which patient converted to normal sinus rhythm. She denies chest pain, olfactory hallucinations, fever, chills, motor symptoms, sick contacts. Patient reported similar episode 1 month back which was transient, she did not seek any care at that time. Four years ago she reports having episodes of dizziness and palpitations, she underwent stress testing, echocardiogram and cardiac monitoring, and was eventually diagnosed with panic attack and vertigo. Hospital Course: She was admitted for a episode of SVT recorded by EMS. Her initial labs revealed elevated troponins, hypokalemia, mildly elevated ALT. Hypokalemia was corrected; troponins trending down. Patient was monitored on Telemetry. She was started on low-dose metoprolol, atorvastatin 40 mg and aspirin 81 mg p.o. daily. Echocardiogram was completed. Her telemetry and EKG showed sinus rhythm. Cardiology on board, recommended magnesium replacement, low-dose beta mis, outpatient electrophysiology. Patient is stable for discharge and will follow closely with Cardiology in outpatient clinic. Conditions managed during stay: Type 2 NSTEMI, likely due to SVT Recurrent SVT, [id number] successful chemical cardioversion with adenosine x2 Ruled out hypothyroidism Hypokalemia, resolved Transaminitis History of uterine, ovarian cancer, status post hysterectomy, oophorectomy Plan: Continue metoprolol 25 mg p.o. daily Continue aspirin 81 mg p.o. daily Continue atorvastatin 20 mg p.o. daily Follow with Cardiology in outpatient clinic Follow with PCP in 1 week Consults/Reason for consult Cardiology recommended replacing magnesium, initiating metoprolol succinate 25 mg, outpatient follow with electrophysiology for evaluation and possible ablation. Can monitor on [employer]. Operations or Procedures CHEST RADIOGRAPH Indication: sob Technique: Single frontal view of the chest was obtained COMPARISON: None FINDINGS: Lines and Tubes: None Lungs: Clear Pleura: No effusion. No pneumothorax. Cardiomediastinal contours: Unremarkable Bones: Unremarkable IMPRESSION: 1. No acute disease. Condition at Discharge: Stable Final Diagnosis/Problems List Type 2 NSTEMI, likely due to SVT Recurrent SVT, [id number] successful chemical cardioversion with adenosine x2 Ruled out hypothyroidism Hypokalemia, resolved Transaminitis History of uterine, ovarian cancer, status post hysterectomy, oophorectomy Discharge Disposition: Home Discharge Instruct/Medications Diet: Cardiac 2g Na,low cholest Activity: No Restrictions, As Tolerated Follow Up/Referral: PCP NANCY Medications: Toprol XL 25 mg qd Lipitor ASA New Medications: Metoprolol Succinate (Toprol Xl) 25 Mg Tab 1 TAB PO DAILY for 30 Days, #30 TAB 5 Refills Aspirin (Aspirin Low Dose) 81 Mg Tab 81 MG PO DAILY for 30 Days, #30 TAB Atorvastatin Calcium (Atorvastatin Calcium) 20 Mg Tab 40 MG PO HS for 30 Days, #60 TAB Scheduled Aspirin (Aspirin Low Dose), 81 MG PO DAILY Atorvastatin Calcium (Atorvastatin Calcium), 40 MG PO HS Metoprolol Succinate (Toprol Xl), 1 TAB PO DAILY Discharge Statement: "Patient was advised to return to the ER or call 911 if any headaches, dizziness, shortness of breath, chest pain, abdominal pain, bleeding, fevers, or worsening of medical condition. Patient was counseled about treatment plan, medications, possible side effects, patientverbalized understanding. All questions were answered to the best of my ability. This discharge took greater then 30 minutes in planning, reviewing documentation, counseling the patient, and discussing with other team members." ASSESSMENT ASSESSMENT Assessment SVT Date of Service: Feb 20, 2025 Billing Provider: SULY GREWAL MD Common Visit Codes: 08701-NIK/OBS DISCH DAY >30min SHELBIE GU Feb 20, 2025 12:51 SULY GREWAL MD Feb 21, 2025 16:46
== END 2025-02-19 16:33 | disposition home or self-care (01) | DRG 201 ==
LOC: ER 19:17 → EDBD 19:17 → OVERFLOW 02-18 02:51 → TELE-EAST 02-18 04:35
PROVIDERS: ADMIT Internal Medicine Geriatric Medicine; ATTEND Internal Medicine Geriatric Medicine
DX: I47.10 Supraventricular tachycardia, unspecified (principal); I21.A1 Myocardial infarction type 2; E87.6 Hypokalemia; R74.01 Elevation of levels of liver transaminase levels; E83.42 Hypomagnesemia; Z85.41 Personal history of malignant neoplasm of cervix uteri; Z79.899 Other long term (current) drug therapy
CPT/HCPCS: 36415; 71045; 80048; 80053; 80307; 81001; 83735; 83880; 84443; 84484; 85025; 93005; 93306; 96360; 99291; G0378